=== PATIENT | female | born 1980 | race Caucasian/White ===

== ENCOUNTER 2017-09-18 16:59 | Emergency (ER) | payer SELFPAY ==
[~2017-09-18] VITALS: Ht 162.6 cm; Wt 92.0 kg
[2017-09-18 17:00] VITALS: BP 139/67; PULSE 58; RESP 16; TEMP 98.9; O2SAT 100
[2017-09-18] MEDS ORDERED: FAMO1TAB37 PO (17:11)
[2017-09-18] MEDS ORDERED: NEXI20CA PO (17:11)
[2017-09-18] MEDS ORDERED: SODIUM CHLOR 0.9% 1000 ML INJ 1,000 ML IV SCH (17:25)
--- NOTE | 2017-09-18 17:29 | PD ---
HPI Chief Complaint: Abdominal Pain Time Seen by Provider: 17:18 Travel History International Travel<30 days: No Contact w/Intl Traveler<30days: No Traveled to known affect area: No History of Present Illness HPI 37-year-old female here for evaluation of left lower quadrant abdominal pain. Pain started yesterday, sharp, constant, 8 out of 10, worse with movements and palpation. Pain is associated with nausea but no vomiting. No diarrhea. No fevers or chills. No history of abdominal surgeries. She is having some dysuria. No vaginal bleeding or discharge. PFSH Past Medical History Diminished Hearing: No Gastrointestinal Disorders: Yes GERD: Yes Tetanus Vaccination: > 5 Years Influenza Vaccination: Yes ?: Not LMP: 09/05/17 : 4 Para: 4 Past Surgical History Surgical History: No Previous Surgery Social History Alcohol Use: Yes (rare) Tobacco Use: No (5 cigarrettes per day) Substance Use: No Allergies-Medications (Allergen,Severity, Reaction): Coded Allergies: Penicillins (Verified Allergy, Unknown, rash, 09/18/17) Reported Meds & Prescriptions Reported Meds & Active Scripts Active Reported Nexium (Esomeprazole DR) 20 Mg Capdr 20 Mg PO DAILY Pepcid (Famotidine) 20 Mg Tab 20 Mg PO BID Review of Systems Except as stated in HPI: all other systems reviewed are Neg Physical Exam Narrative GENERAL: Well-developed, well-nourished, comfortable, no apparent distress. SKIN: Focused skin assessment warm/dry. HEAD: Atraumatic. Normocephalic. EYES: Pupils equal and round. No scleral icterus. No injection or drainage. ENT: No nasal bleeding or discharge. Mucous membranes pink and moist. NECK: Trachea midline. No JVD. CARDIOVASCULAR: Regular rate and rhythm. RESPIRATORY: No accessory muscle use. Clear to auscultation. Breath sounds equal bilaterally. GASTROINTESTINAL: Abdomen soft, nondistended. Mild left lower quadrant tenderness without rebound or guarding. Rest of abdomen is soft and nontender. Normal bowel sounds. : Exam performed in the presence of a female nurse. Normal external genitalia. No vaginal discharge or bleeding. Normal cervix. No CMT. No right adnexal mass or tenderness. No left adnexal mass. There is moderate tenderness. MUSCULOSKELETAL: No obvious deformities. No clubbing. No cyanosis. No edema. NEUROLOGICAL: Awake and alert. No obvious cranial nerve deficits. Motor grossly within normal limits. Normal speech. PSYCHIATRIC: Appropriate mood and affect; insight and judgment normal. Data Data Last Documented VS Vital Signs Date Time Temp Pulse Resp B/P (MAP) Pulse Ox O2 Delivery O2 Flow Rate FiO2 09/18/17 18:39 16 09/18/17 17:30 98 Room Air 09/18/17 17:00 98.9 58 Orders Orders Complete Blood Count With Diff (09/18/17:) Comprehensive Metabolic Panel (09/18/17) Prothrombin Time / Inr (Pt) (09/18/17:) Act Partial Throm Time (Ptt) (09/18/17:) Urinalysis - C+S If Indicated (09/18/17:) Ct Abd/Pel W Iv Contrast(Rout) (09/18/17:25) Iv Access Insert/Monitor (09/18/17:) Ecg Monitoring (09/18/17:) Oximetry (09/18/17:) Ondansetron Inj (Zofran Inj) (09/18/17 17:30) Sodium Chlor 0.9% 1000 Ml Inj (Ns 1000 M (09/18/17 17:25) Sodium Chloride 0.9% Flush (Ns Flush) (09/18/17 17:30) Ed Urine Pregnancytest Poc (09/18/17 17:25) Ketorolac Inj (Toradol Inj) (09/18/17 17:30) Gc And Chlamydia Pcr (09/18/17 17:59) Wet Prep Profile (09/18/17 17:59) Us Pelvis Comp W Dop Transvag (09/18/17 ) Iohexol 350 Inj (Omnipaque 350 Inj) (09/18/17 19:08) Labs Laboratory Tests Test 09/18/17 17:20 09/18/17 17:30 09/18/17 17:45 Urine Color LIGHT-YELLOW Urine Turbidity CLEAR Urine pH 6.0 Urine Specific [place] 1.003 Urine Protein NEG mg/dL Urine Glucose (UA) NEG mg/dL Urine Ketones NEG mg/dL Urine Occult Blood NEG Urine Nitrite NEG Urine Bilirubin NEG Urine Urobilinogen LESS THAN 2.0 MG/DL Urine Leukocyte Esterase NEG Urine WBC LESS THAN 1 /hpf Urine Squamous Epithelial Cells 5 /hpf Urine Bacteria OCC /hpf Microscopic Urinalysis Comment CULT NOT INDICATED White Blood Count 7.4 TH/MM3 Red Blood Count 4.59 MIL/MM3 Hemoglobin 13.5 GM/DL Hematocrit 39.4 % Mean Corpuscular Volume 85.9 FL Mean Corpuscular Hemoglobin 29.5 PG Mean Corpuscular Hemoglobin Concent 34.3 % Red Cell Distribution Width 14.0 % Platelet Count 188 TH/MM3 Mean Platelet Volume 8.5 FL Neutrophils (%) (Auto) 48.5 % Lymphocytes (%) (Auto) 45.5 % Monocytes (%) (Auto) 5.0 % Eosinophils (%) (Auto) 0.7 % Basophils (%) (Auto) 0.3 % Neutrophils # (Auto) 3.6 TH/MM3 Lymphocytes # (Auto) 3.4 TH/MM3 Monocytes # (Auto) 0.4 TH/MM3 Eosinophils # (Auto) 0.0 TH/MM3 Basophils # (Auto) 0.0 TH/MM3 CBC Comment DIFF FINAL Differential Comment Prothrombin Time 10.0 SEC Prothromb Time International Ratio 1.0 RATIO Activated Partial Thromboplast Time 24.4 SEC Blood Urea Nitrogen 12 MG/DL Creatinine 0.71 MG/DL Random Glucose 102 MG/DL Total Protein 7.4 GM/DL Albumin 3.8 GM/DL Calcium Level 8.8 MG/DL Alkaline Phosphatase 63 U/L Aspartate Amino Transf (AST/SGOT) 15 U/L Alanine Aminotransferase (ALT/SGPT) 25 U/L Total Bilirubin 0.3 MG/DL Sodium Level 140 MEQ/L Potassium Level 3.5 MEQ/L Chloride Level 107 MEQ/L Carbon Dioxide Level 27.7 MEQ/L Anion Gap 5 MEQ/L Estimat Glomerular Filtration Rate 93 ML/MIN Clue Cells (Wet Prep) NONE SEEN Vaginal Trichomonas (Wet Prep) NONE SEEN Vaginal Yeast (Wet Prep) NONE SEEN MDM Medical Decision Making Medical Screen Exam Complete: Yes Emergency Medical Condition: Yes Differential Diagnosis Ovarian cyst, ovarian torsion, , ectopic , colitis, diverticulitis, appendicitis, UTI, cystitis, PID Narrative Course Vital signs are within normal limits. CBC is unremarkable. CMP is unremarkable. UA is not suggestive of UTI. Left prep is negative for use, negative for clue cells, negative for Trichomonas. Urine is negative. Pelvic ultrasound: CONCLUSION: Negative pelvic ultrasound examination. CT abdomen pelvis: CONCLUSION: 1. No acute abnormality is seen. 2. Mild hepatic steatosis. 3. Nonspecific 2.6 cm hyperenhancing lesion in the right lobe of the liver. The most common possibilities include a hemangioma, FNH, or hepatic adenoma. This could be further evaluated with a MRI examination of the abdomen. This could be performed on an elective basis as an outpatient. Patient was given a dose of IV Toradol and reports significant improvement in her pain. She was made aware of all findings and provided a copy of her CT abdomen and pelvis report with instructions to follow-up with a primary care physician to have an outpatient MRI performed to further evaluate her liver lesion. At this point she is stable for discharge home with outpatient follow- up. I will give her the information to the [facility] where she should make an appointment for follow-up this week. She was informed on when to return to the emergency department. She verbalizes understanding and agreement with plan. Diagnosis Primary Impression: Abdominal pain Qualified Codes: R10.32 - Left lower quadrant pain Additional Impression: Liver lesion Referrals: [facility] 3 days Primary Care Physician 3 days Additional Instructions: Follow-up with a primary care physician this week. Return to the emergency department for worsening symptoms or any other concerns. Scripts Naproxen (Naproxen) 500 Mg Tab 500 MG PO BID for 10 Days, #20 TAB 0 Refills Prov: Rodney Potts MD 09/18/17 Disposition: 01 DISCHARGE HOME Condition: Stable Rodney Potts MD Sep 18, 2017 17:29
[2017-09-18 17:30] VITALS: RESP 16; O2SAT 98
[2017-09-18] MEDS ORDERED: ONDANSETRON HCL 4 MG/2 ML VIAL IVP ONE (17:30)
[2017-09-18] MEDS ORDERED: KETOROLAC TROMETHAMINE 30 MG/ML (IVP) VIAL IV PUSH ONE (17:30)
[2017-09-18] MEDS ORDERED: SODIUM CHLORIDE 0.9% FLUSH 10 ML FLUSH IV FLUSH PRN (17:30)
[2017-09-18 18:19] LABS: AUTOMATED NEUTROPHIL # 3.6 TH/MM3 (1.8-7.7); BASOPHIL % 0.3 % (0.0-2.0); EOSINOPHIL % 0.7 % (0.0-4.0); HEMATOCRIT 39.4 % (35.0-46.0); HEMO FLAGS DIFF FINAL; LYMPH % 45.5 % (9.0-44.0); LYMPHOCYTE # 3.4 TH/MM3 (1.0-4.8); MEAN CELL VOLUME 85.9 FL (80.0-100.0); MEAN CORPUSCULAR HEMOGLOBIN 29.5 PG (27.0-34.0); MEAN CORPUSCULAR HGB CONC 34.3 % (32.0-36.0); NEUT % 48.5 % (16.0-70.0); PLATELET COUNT 188 TH/MM3 (150-450); RED BLOOD COUNT 4.59 MIL/MM3 (4.00-5.30); WHITE BLOOD COUNT 7.4 TH/MM3 (4.0-11.0)
[2017-09-18 18:24] LABS: BACTERIA, URINE OCC /hpf; BLOOD, URINE NEG (NEG); COMMENT (UR) CULT NOT INDICATED; CULTURE IF INDICATED CULT NOT INDICATED; GLUCOSE,URINE NEG (NEG); KETONE, URINE NEG (NEG); NITRITE,URINE NEG (NEG); SQUAMOUS EPITHELIAL CELL URINE 5 /hpf (0-5); URINE COLOR LIGHT-YELLOW (YELLW/STRAW)
[2017-09-18 18:31] LABS: APTT (PATIENT) 24.4 SEC (24.3-30.1)
[2017-09-18 18:33] LABS: ALT (GPT) 25 U/L (10-53); ANION GAP 5 MEQ/L (5-15); AST (GOT) 15 U/L (15-37); BICARBONATE 27.7 MEQ/L (21.0-32.0); BLOOD UREA NITROGEN 12 MG/DL (7-18); CHLORIDE 107 MEQ/L (98-107); GLOMERULAR FILTRATION RATE 93 ML/MIN (>89); POTASSIUM 3.5 MEQ/L (3.5-5.1); SODIUM (NA) 140 MEQ/L (136-145)
[2017-09-18 18:36] LABS: ALKALINE PHOSPHATASE 63 U/L (45-117); TOTAL BILIRUBIN ADULT 0.3 MG/DL (0.2-1.0)
[2017-09-18 18:39] VITALS: RESP 16
--- NOTE | 2017-09-18 18:40 | RADRPT ---
EXAM DATE/TIME: 09/18/2017 17:45 [facility] COMPARISON: No previous studies available for comparison. INDICATIONS : Pelvic pain. MEDICAL HISTORY : Gastroesophageal reflux disease. Tobacco use. SURGICAL HISTORY : None. ENCOUNTER: Initial ACUITY: 3 days PAIN SCORE: 5/10 LOCATION: Bilateral pelvis MEASUREMENTS: UTERUS: 9.4 x 5.1 x 4.7 cm ENDOMETRIAL STRIPE: 9 mm RIGHT OVARY: 2.5 x 2.0 x 1.5 cm FINDINGS: UTERUS: The myometrium has homogeneous echotexture without mass. There are small cystic areas near the cervix likely related to nabothian cysts. RIGHT OVARY: There is a 1 cm simple cyst seen at the right ovary likely related to a follicle. Arterial flow is se en in the ovary. LEFT OVARY: Ovary contains no mass or significant cystic lesion. Arterial flow is seen at the ovary. MISCELLANEOUS: No free fluid. CONCLUSION: Negative pelvic ultrasound examination. Dany Villegas MD on September 18, 2017 at 18:37 Board Certified Radiologist. This report was verified electronically.
[2017-09-18] MEDS ORDERED: IOHEXOL 350 MG/ML 10 ML VIAL (for RAD DIAG) IVCONTRAST ONE (19:08)
--- NOTE | 2017-09-18 19:23 | RADRPT ---
EXAM DATE/TIME: 09/18/2017 19:04 [facility] COMPARISON: No previous studies available for comparison. INDICATIONS : Left lower quadrant pain and nausea. IV CONTRAST: 94 cc Omnipaque 350 (iohexol) IV ORAL CONTRAST: No oral contrast ingested. RADIATION DOSE: 20.11 CTDIvol (mGy) ; Patient body habitus MEDICAL HISTORY : None SURGICAL HISTORY : None. ENCOUNTER: Initial ACUITY: 1 day PAIN SCALE: 6/10 LOCATION: Left lower quadrant abdomen TECHNIQUE: Volumetric scanning of the abdomen and pelvis was performed. Using automated exposure control and ad justment of the mA and/or kV according to patient size, radiation dose was kept as low as reasonably achievable to obtain optimal diagnostic quality images. DICOM format image data is available electro nically for review and comparison. FINDINGS: LOWER LUNGS: The visualized lower lungs are clear. LIVER: There is a 2.6 cm hyperenhancing mass seen in the right lobe of the liver. This is nonspecific. There is mild decreased attenuation to the liver overall. SPLEEN: Normal size without lesion. PANCREAS: Within normal limits. KIDNEYS: Normal in size and shape. There is no mass, stone or hydronephrosis. ADRENAL GLANDS: Within normal limits. VASCULAR: There is no aortic aneurysm. BOWEL/MESENTERY: The stomach, small bowel, and colon demonstrate no acute abnormality. There is no free intraperitone al air or fluid. ABDOMINAL WALL: Within normal limits. RETROPERITONEUM: There is no lymphadenopathy. BLADDER: No wall thickening or mass. REPRODUCTIVE: Within normal limits. INGUINAL: There is no lymphadenopathy or hernia. MUSCULOSKELETAL: Within normal limits for patient age. CONCLUSION: 1. No acute abnormality is seen. 2. Mild hepatic steatosis. 3. Nonspecific 2.6 cm hyperenhancing lesion in the right lobe of the liver. The most common possibili ties include a hemangioma, FNH, or hepatic adenoma. This could be further evaluated with a MRI examin ation of the abdomen. This could be performed on an elective basis as an outpatient. Dany Villegas MD on September 18, 2017 at 19:14 Board Certified Radiologist. This report was verified electronically.
[2017-09-18] MEDS ORDERED: NAPR500T2 PO (19:35)
[2017-09-18 20:53] LABS: CHLAMYDIA PCR NOT DETECTED (NOT DETECT); NEISSERIA PCR NOT DETECTED (NOT DETECT)
== END 2017-09-18 20:04 | disposition home or self-care (01) ==
LOC: NEPD 16:59
DX: R10.32 Left lower quadrant pain (principal); K76.9 Liver disease, unspecified; K76.0 Fatty (change of) liver, not elsewhere classified; R30.0 Dysuria; K21.9 Gastro-esophageal reflux disease without esophagitis; F17.210 Nicotine dependence, cigarettes, uncomplicated; Z88.0 Allergy status to penicillin; Z79.899 Other long term (current) drug therapy
CPT/HCPCS: 74177; 76830; 76856; 80053; 81001; 84703; 85025; 85610; 85730; 87210; 87491; 87591; 93975; 96361; 96374; 96375; 99285; J1885; J2405; J7030; Q9967

== ENCOUNTER 2018-02-25 20:14 | Emergency (ER) | END 2018-02-25 20:53 | disposition home or self-care (01) | DX: H66.91 Otitis media, unspecified, right ear (principal); R09.82 Postnasal drip; R07.9 Chest pain, unspecified; K21.9 Gastro-esophageal reflux disease without esophagitis; Z72.0 Tobacco use; Z88.0 Allergy status to penicillin ==